=== PATIENT | male | born 1975 | race Caucasian/White ===

== ENCOUNTER 2019-12-16 05:53 | Day surgery (SDC) | payer BC ==
[2019-12-15 10:31] VITALS: BMI 46.0
[2019-12-16] MEDS ORDERED: AFRIN NASAL MIST 15 ML BOT ONE ×2 (06:37→06:45)
[2019-12-16] MEDS ORDERED: Bacitracin Zinc Ointment 30 gm TUBE ONE (06:45)
[2019-12-16] MEDS ORDERED: Lidocaine 1% w/Epinephrine 1:100K 20 ML VIAL ONE (06:45)
[2019-12-16] MEDS ORDERED: Ferric Subsulfate (ASTRINGYN) 8 GM VIAL ONE (06:45)
[2019-12-16] MEDS ORDERED: Fentanyl 100 MCG/2 ML VIAL ONE ×2 (07:52→09:27)
[2019-12-16] MEDS ORDERED: PROPOFOL 20 ML ONE (07:52)
[2019-12-16] MEDS ORDERED: Dexmedetomidine 200 MCG/2 ML VIAL ONE (08:07)
[2019-12-16] MEDS ORDERED: methylPREDNISolone Acetate 40 mg/ml Vial ONE (08:15)
[2019-12-16] MEDS ORDERED: Labetalol HCl 100 MG/20 ML VIAL ONE (09:45)
[2019-12-16] MEDS ORDERED: Ondansetron PF 4 MG/2 ML Vial ONE (10:02)
[2019-12-16] MEDS ORDERED: Rocuronium Bromide 10 MG/ML (10ML VIAL) ONE (10:02)
[2019-12-16] MEDS ORDERED: Lidocaine 1% PF 5 ML VIAL ONE (10:02)
[2019-12-16] MEDS ORDERED: Succinylcholine Chloride 20 MG/ML 10 ml SYRINGE FS ONE (10:02)
[2019-12-16] MEDS ORDERED: PROPOFOL 200 MG/20 ML VIAL ONE (10:02)
[2019-12-16] MEDS ORDERED: Dexamethasone 20 MG/5 ML VIAL ONE (10:02)
[2019-12-16] MEDS ORDERED: Hydrocodone-Acetamin 15 ML UDCUP ONE (11:32)
--- NOTE | 2019-12-17 14:35 | OP ---
DATE OF PROCEDURE: 12/16/2019 PREOPERATIVE DIAGNOSES: 1. Chronic rhinosinusitis. 2. Nasal septal deviation. 3. Bilateral inferior turbinate hypertrophy. 4. 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 5. Chronic adenotonsillitis. 6. Adenotonsillar hypertrophy. 7. Uvula hypertrophy. 8. Obstructive sleep apnea. SURGEON: Abimael Teixeira MD COMPLICATIONS: None. ANESTHESIA: GETA. PROCEDURE IN DETAIL: TONSILLECTOMY AND ADENOIDECTOMY: After consent was obtained, the patient was identified, brought to the operating room, and placed on the operating table in the supine position. General endotracheal anesthesia and intravenous access were obtained and we proceeded with positioning the patient for oropharyngeal surgery. Oropharyngeal exposure was obtained with a Vivi-Elvin mouth gag after a head drape was placed and secured with a towel clip. The Vivi-Elvin mouth gag was then suspended from the Lin tray and palatal elevation was achieved with a red rubber catheter. The right tonsil was addressed first. We used a curved Allis to grasp the tonsil and retract it medially as an anterior pillar incision was made. The retrotonsillar fascial plane was then established and blunt dissection was performed with the suction cautery. Blood vessels were anticipated, identified, and cauterized as they were encountered. Ultimately, dissection was carried to the posterior tonsillar pillar mucosa which was incised hemostatically, as well as the base of tongue connection. The tonsil was then passed off as a specimen and bleeding points within the tonsillar bed were cauterized under direct visualization. We subsequently turned our attention to the contralateral side, where using a similar technique, a near identical procedure was performed. Again, the tonsil was grasped and retracted medially with a curved Allis. The retrotonsillar fascial plane was established and while the anterior pillar was retracted medially. The hemostatic blunt dissection of the tonsil with a suction cautery was performed with blood vessels anticipated, identified, and cauterized as they were encountered. Again, dissection continued to the base of tongue and posterior tonsillar pillar mucosa which was incised in a hemostatic fashion. The tonsillar beds were then carefully inspected and bleeding points were identified and cauterized with a suction cautery. After this portion of the procedure, hemostasis was completely obtained. Under direct mirror visualization, we visualized the adenoid pad. Under direct mirror visualization, we removed the bulk of the adenoid tissue with the adenoid curette. We then packed the nasopharynx for an appropriate period of time with [id number] tonsillar sponges. After a period of observation, we removed the pack. Under indirect mirror visualization, we obtained hemostasis and vaporization of residual adenoid tissue with electrocautery. The patient's oral cavity was copiously irrigated with iced saline and subsequently suctioned. After completion of the procedure, the nasal cavity and oropharynx were irrigated and suctioned as were the gastric contents. The patient was then awakened and transferred to the recovery room where the patient remained in stable condition prior to discharge to Day Stay. Following this, the uvula and soft palate were measured multiple times to ensure adequate links to the posterior pharyngeal wall. The excessive portions of the soft palate and uvula were then resected using the Bovie electrocautery. The mucosa was then reapproximated using a 3-0 chromic gut stitch. Following this, oral cavity was irrigated and orogastric tube was placed and gastric contents were suctioned. NASAL SEPTOPLASTY AND BILATERAL INFERIOR TURBINATE SUBMUCOSAL RESECTION: Patient was taken to the operating room and placed supine on the table. General endotracheal anesthesia was obtained by the anesthesia staff. Then 1% lidocaine with 1:100,000 epinephrine was injected into the nasal septum as well as the inferior turbinates. The patient was prepped and draped in standard surgical fashion. The Afrin pledgets were then removed. A Da incision was made on the left nasal septum. Submucoperichondrial dissection was performed bilaterally of the deviated portions of the septum, which included the maxillary crest and the crest deviation, as well as the mid portion of the septum. Cartilage and bony deviation were removed, leaving a generous caudal and dorsal strut. Any straight pieces of cartilage were then placed within the cartilage press, pressed, straightened, and then placed between the mucoperichondrial flaps, which were then closed using a 4-0 gut stitch. The inferior turbinates were then punctured with the submucosal Coblation machine, and 3 separate coblations were delivered to the anterior inferior portion of the inferior turbinates. Following this, the nasal cavity was irrigated. All debris was removed. An orogastric tube was placed. Gastric contents and Holt splints were then placed in the nasal cavity and sutured with a 3-0 silk stitch. Following this, nasal valve repair was performed by making a small transcartilaginous incision, and a subperiosteal pocket was elevated bilaterally over the nasal bones. A graft was then placed into this pocket supporting and correcting the nasal valve collapse bilaterally. An incision was closed using a 5-0 chromic gut stitch. Following this, the 0-degree endoscope was advanced in the middle turbinates, and middle turbinates were then medialized. A sickle knife was used to incise the middle turbinates vertically and the lateral wall of the large domingo bullosa defects using the 0-degree microdebrider and straight Blakesley forceps bilaterally. Following this, the uncinate process was then visualized and was anteriorly fractured using a ball-ended probe. The uncinate was then removed using the microdebrider and up-biting Blakesley forceps bilaterally. Following this, the ethmoidal bulla was identified bilaterally. Once following this, the natural maxillary sinus ostia were then identified using a ball-ended probe bilaterally, and the 40-degree microdebrider blade and straight Blakesley forceps were used to open the maxillary sinus ostia bilaterally. Following this, the ethmoidal bulla was identified and was punctured on its medial and inferior aspect and with the microdebrider, the ethmoidal bulla cells were then opened using the microdebrider and up-biting Blakesley forceps bilaterally. Following this, the grand lamella was identified and was punctured using the 0-degree microdebrider into the posterior ethmoidal cells working posteriorly to anteriorly. Using the 0- degree microdebrider and up-biting Blakesley forceps, the ethmoidal cells were then opened. Following this, the anterior wall of the sphenoid sinus was then identified and a sphenoidotomy was created using 0-degree microdebrider bilaterally. The sphenoidotomy was then widened in a medial and inferior direction using the microdebrider bilaterally. Following this, a 45-degree endoscope was then used along with 40-degree microdebrider blade to further open any remaining anterior ethmoidal cells and also to identify the frontal sinus ostia bilaterally. The frontal sinus ostia were punctured and was widened using a 40-degree microdebrider and up-biting Blakesley forceps bilaterally. Following this, the nasal cavity was irrigated. NasoPore packing was placed within the middle meatus. Holt splints were then placed and secured in the nasal cavity. The patient tolerated the procedure well. PROCEDURES PERFORMED: 1. Bilateral endoscopic sinus surgery, total ethmoidectomies. 2. Bilateral endoscopic sinus surgery, maxillary antrostomies. 3. Bilateral endoscopic sinus surgery, frontal sinus exploration. 4. Bilateral endoscopic sinus surgery, sphenoidotomies. 5. Bilateral repair of nasal wall defect. 6. Nasal septoplasty. 7. Bilateral inferior turbinate submucosal resection. 8. Tonsillectomy and adenoidectomy. 9. Uvulectomy. ESTIMATED BLOOD LOSS: 50 mL. COMPLICATIONS: None. ANESTHESIA: GETA. Job ID: [id number] [id number]
== END 2019-12-16 12:55 | disposition home or self-care (01) ==
LOC: SDC 05:53
PROVIDERS: ATTEND Otolaryngology Plastic Surgery within the Head & Neck
PROC: 0CTPXZZ Resection of Tonsils, External Approach (ICD-10-PCS; principal; 2019-12-16)
PROC: 09BM8ZZ Excision of Nasal Septum, Via Natural or Artificial Opening Endoscopic (ICD-10-PCS; principal; 2019-12-16)
PROC: 09BT8ZZ Excision of Left Frontal Sinus, Via Natural or Artificial Opening Endoscopic (ICD-10-PCS; principal; 2019-12-16)
PROC: 09BL8ZZ Excision of Nasal Turbinate, Via Natural or Artificial Opening Endoscopic (ICD-10-PCS; principal; 2019-12-16)
PROC: 0CTNXZZ Resection of Uvula, External Approach (ICD-10-PCS; principal; 2019-12-16)
PROC: 099X8ZZ Drainage of Left Sphenoid Sinus, Via Natural or Artificial Opening Endoscopic (ICD-10-PCS; principal; 2019-12-16)
PROC: 099W8ZZ Drainage of Right Sphenoid Sinus, Via Natural or Artificial Opening Endoscopic (ICD-10-PCS; principal; 2019-12-16)
PROC: 09BU8ZZ Excision of Right Ethmoid Sinus, Via Natural or Artificial Opening Endoscopic (ICD-10-PCS; principal; 2019-12-16)
PROC: 0CTQXZZ Resection of Adenoids, External Approach (ICD-10-PCS; principal; 2019-12-16)
PROC: 099R8ZZ Drainage of Left Maxillary Sinus, Via Natural or Artificial Opening Endoscopic (ICD-10-PCS; principal; 2019-12-16)
PROC: 099Q8ZZ Drainage of Right Maxillary Sinus, Via Natural or Artificial Opening Endoscopic (ICD-10-PCS; principal; 2019-12-16)
PROC: 09BS8ZZ Excision of Right Frontal Sinus, Via Natural or Artificial Opening Endoscopic (ICD-10-PCS; principal; 2019-12-16)
PROC: 09BV8ZZ Excision of Left Ethmoid Sinus, Via Natural or Artificial Opening Endoscopic (ICD-10-PCS; principal; 2019-12-16)
DX: J32.4 Chronic pansinusitis (principal); J34.2 Deviated nasal septum; J34.3 Hypertrophy of nasal turbinates; J34.89 Other specified disorders of nose and nasal sinuses; J35.03 Chronic tonsillitis and adenoiditis; K13.79 Other lesions of oral mucosa; G47.33 Obstructive sleep apnea (adult) (pediatric); J30.9 Allergic rhinitis, unspecified; H69.80 Other specified disorders of Eustachian tube, unspecified ear; Z87.891 Personal history of nicotine dependence; Z88.0 Allergy status to penicillin
CPT/HCPCS: 88302; 88304; J1100; J2405; J2704; J2920; J3010